=== PATIENT | male | born 1995 | race Caucasian/White ===

== ENCOUNTER → 2023-02-22 | Day surgery (SDC) | payer BC, OTHER ==
[~2023-02-22] VITALS: Ht 162.5 cm; Wt 127.0 kg
[~2023-02-22] MED LIST: CLARITIN10 MG PO; LOSARTAN POTASS25 M1 PO; PAXIL20 M1 PO; PROTONIX40 MG PO; VITAMIN D325 MCG PO
[2023-02-22 06:35] VITALS: BP 129/53
[2023-02-22 07:55] VITALS: BP 122/63
[2023-02-22 08:10] VITALS: BP 131/62
[2023-02-22 08:25] VITALS: BP 121/63
[2023-02-22 08:40] VITALS: BP 136/68
[2023-02-22 08:51] VITALS: BP 145/76
== END | disposition home or self-care (01) ==
LOC: SDC 02-19 14:45
PROVIDERS: ATTEND Specialist
DX: H65.493 Other chronic nonsuppurative otitis media, bilateral (principal)